=== PATIENT | male | born 1960 ===

== ENCOUNTER 2021-07-22 15:47 | Emergency (ER) | payer BC ==
[~2021-07-22] VITALS: Ht 177.8 cm; Wt 80.9 kg
[2021-07-22 15:57] VITALS: BP 161/103
[2021-07-22] MEDS ORDERED: normal saline 1000ML IV soln IV ONE (16:00)
[2021-07-22 16:36] LABS: BASOPHILS # (AUTO) 0.1 X10'3 (0-0.2); BASOPHILS % (AUTO) 0.6 % (0-1); EOSINOPHILS # (AUTO) 0.1 X10'3 (0-0.9); EOSINOPHILS % (AUTO) 0.8 % (0-6); HEMATOCRIT 46.7 % (42.0-52.0); HEMOGLOBIN 15.3 g/dl (14.0-17.9); LYMPHOCYTES % (AUTO) 9.8 % (21-51); MEAN CORPUSCULAR HEMOGLOBIN 28.3 PG (27.0-31.0); MEAN CORPUSCULAR HGB CONC 32.9 g/dL (33.0-36.5); MEAN CORPUSCULAR VOLUME 86.2 FL (78-98); MEAN PLATELET VOLUME 8.4 FL (7.4-10.4); MONOCYTES # (AUTO) 0.9 X10'3 (0-0.9); MONOCYTES % (AUTO) 8.8 % (2-12); NEUTROPHILS # (AUTO) 8.3 X10'3 (1.8-7.7); PLATELET COUNT 294 X10'3 (140-440); RED BLOOD COUNT 5.41 X10'6 (4.70-6.10); WHITE BLOOD COUNT 10.4 X10'3 (4.5-11.0)
[2021-07-22 16:53] LABS: ALANINE AMINOTRANSFERASE 32 U/L (12-78); ALBUMIN 3.5 G/DL (3.4-5.0); ALBUMIN/GLOBULIN RATIO 0.8 (1.1-1.5); ALKALINE PHOSPHATASE 70 IU/L (46-116); ANION GAP 9 (8-16); BILIRUBIN,TOTAL 0.4 MG/DL (0.1-1.0); BLOOD UREA NITROGEN 14 MG/DL (7-18); BUN/CREATININE RATIO 13.2 (5.4-32.0); CALCIUM 9.7 MG/DL (8.5-10.1); CHLORIDE 103 MMOL/L (99-107); CREATININE 1.06 MG/DL (0.60-1.10); GLUCOSE 92 MG/DL (70-104); MAGNESIUM 2.4 MG/DL (1.5-2.4); SODIUM 144 MMOL/L (135-145); TOTAL CARBON DIOXIDE 32.4 MMOL/L (24-32); TOTAL PROTEIN 7.7 G/DL (6.4-8.2); eGFR 71 ML/MIN
[2021-07-22 17:04] LABS: POTASSIUM 4.3 MMOL/L (3.5-5.1)
[2021-07-22 17:10] LABS: ASPARTATE AMINO TRANSFERASE 34 U/L (10-37)
[2021-07-22] MEDS ORDERED: iohexol 300mg/ml 100ml inj. ONE (17:10)
== END 2021-07-22 17:53 | disposition left against medical advice (07) ==
LOC: ER 15:48
DX: R10.2 Pelvic and perineal pain (principal)
CPT/HCPCS: 36415; 80053; 83605; 83735; 84145; 85025; 87040; 99283; Q9967